=== PATIENT | male | born 1965 | race Two or more races ===

== ENCOUNTER 2025-03-11 14:44 | Inpatient (IN) | payer MEDICAID ==
[~2025-03-11] VITALS: Ht 157.5 cm; Wt 87.0 kg
--- NOTE | 2025-03-11 14:58 | ED.PDOC ---
HPI (NEURO) HPI Comments 60 year old male presents to the ED with a chief complaint of headache onset 3 days. PMHx Brain aneurysm, has ruptured 3 times. Patient began experiencing headache 3 days ago, for the past day noticed LT sided facial dropping with numbness, blurred vision, nausea. Denies fever, chills, vomiting, diarrhea, chest pain, shortness of breath. No other symptoms or modifying factors present at this time. Time Seen by MD: 14:48 Primary Care Provider: CRISTIANO Wilde Notes: Medications, Allergies Information Source: Patient Mode of Arrival: Ambulatory Severity: Moderate Headache Severity: Moderate Timing: Days Duration: Since onset Prehospital treatment: None Headache Quality: Sharp Headache Location: Generalized Numbness Location: (L) Sided, Facial Circumstances: Spontaneous Symptoms: Change of vision Associated Signs and Symptoms: Headache, Blurred Vision Past Medical History Past Medical History (Other): brain aneurysm Surgical History: Denies all surgeries Surgical History (Other): Brain aneurysm clipping x3 Family History Family History: Reviewed,noncontributory to illness, No family hx of Cancer, No family hx of DM, No family hx of Heart nat, No family hx of HTN, No family hx ofKidney nat, No family hx of Liver nat, No family hx of Lung nat, No family hx of Stroke Social History Smoker: Non-Smoker Alcohol: Denies ETOH Use Drugs: Denies Drug Use Lives In: Home Constitutional: denies: chills, diaphoresis, fatigue, fever, malaise, sweats, weakness, others EENTM: reports: blurred vision; denies: double vision, ear bleeding, ear discharge, ear drainage, ear pain, ear ringing, eye pain, eye redness, hearing loss, mouth pain, mouth swelling, nasal discharge, nose bleeding, nose congestion, nose pain, photophobia, tearing, throat pain, throat swelling, voice changes, others Respiratory: denies: cough, hemoptysis, orthopnea, SOB at rest, shortness of breath, SOB with excertion, stridor, wheezing, others Cardiovascular: denies: chest pain, dizzy spells, diaphoresis, Dyspnea on exertion, edema, irregular heart beat, left arm pain, lightheadedness, palpitat ions, PND, syncope, others Gastrointestinal: reports: nausea; denies: abdomen distended, abdominal pain, blood streaked bowels, constipated, diarrhea, dysphagia, difficulty swallowing, hematemesis, melena, poor appetite, poor fluid intake, rectal bleeding, rectal pain, vomiting, others Genitourinary: denies: burning, dysuria, flank pain, frequency, hematuria, incontinence, penile discharge, penile sore, pain, testicle pain, testicle swelling, urgency, others Neurological: reports: headache, numbness, others (LT sided facial drooping); denies: dizziness, fainting, left sided numbness, left sided weakness, parest hesia, pre-existing deficit, right sided numbness, right sided weakness, seizure, speech problems, tingling, tremors, weakness Musculoskeletal: denies: back pain, gout, joint pain, joint swelling, muscle pain, muscle stiffness, neck pain, others Integumetry: denies: bruises, change in color, change in hair/nails, dryness, laceration, lesions, lumps, rash, wounds, others Allergic/Immunocompromised: denies: Difficulty Healing, Frequent Infections, Hives, Itching, others Hematologic/Lymphatic: denies: anemia, blood clots, easy bleeding, easy bruisin g, swollen glands, others Endocrine: denies: excessive hunger, excessive sweating, excessive thirst, excessive urination, flushing, intolerance to cold, intolerance to heat, unexplained weight gain, unexplained weight loss, others Psychiatric: denies: anxiety, bipolar disorder, depression, hopeless, panic disorder, schizophrenia, sleepless, suicidal, others All Other Systems: Reviewed and Negative Physical Exam General Appearance: Normal HEENT: Normal ENT Inspection, Pharynx Normal, TMs Normal Neck: Full Range of Motion, Non-Tender, Normal, Normal Inspection Respiratory: Chest Non-Tender, Lungs Clear, No Accessory Muscle Use, No Respiratory Distress, Normal Breath Sounds Cardiovascular: No Edema, No JVD, No Murmur, No Gallop, Normal Peripheral Pulses, Regular Rate/Rhythm Breast Exam: Deferred Gastrointestinal: No Organomegaly, Non Tender, No Pulsatile Mass, Normal Bowel Sounds, Soft Genitalia: Deferred Pelvic: Deferred Rectal: Deferred Extremities: No calf tenderness, Normal capillary refill, Normal inspection, Normal range of motion, Non-tender, No pedal edema Musculoskeletal : Apperance: Normal Neurologic: Alert Cerebellar Function: Normal Reflexes: Normal Skin: Dry, Normal Color, Warm Lymphatic: No Adenopathy Was a procedure done? Was a procedure done?: No Differential Diagnosis (SZ) Seizure: Closed Head Injury, N/A CVA: CVA, TIA General Weakness: Dehydration Headache: Migraine X-Ray, Labs, Meds, VS Vital Signs Date Time Temp Pulse Resp B/P (MAP) Pulse Ox O2 Delivery O2 Flow Rate FiO2 03/11/25 14:57 68 03/11/25 14:46 98.0 71 14 140/93 (109) 98 98.0 Lab Test 03/11/25 16:31 03/11/25 15:14 Range/Units Troponin I High Sensitivity Pending 6 </=54 ng/L White Blood Count 6.6 4.4-10.8 10^3/uL Red Blood Count 5.51 4.5-5.90 10^6/uL Hemoglobin 16.9 13.5-17.5 g/dL Hematocrit 48.5 41.0-53.0 % Mean Corpuscular Volume 88.1 80.0-100.0 fL Mean Corpuscular Hemoglobin 30.7 28.0-32.0 pg Mean Corpuscular Hemoglobin Concent 34.9 32.0-36.0 g/dL Red Cell Distribution Width 13.6 11.8-14.3 % Platelet Count 202 140-450 10^3/uL Mean Platelet Volume 8.9 6.9-10.8 fL Neutrophils (%) (Auto) 46.2 37.0-80.0 % Lymphocytes (%) (Auto) 40.4 10.0-50.0 % Monocytes (%) (Auto) 10.4 0.0-12.0 % Eosinophils (%) (Auto) 1.9 0.0-7.0 % Basophils (%) (Auto) 1.1 0.0-2.0 % Neutrophils # (Auto) 3.1 1.6-8.6 10 ^3/uL Lymphocytes # (Auto) 2.7 0.4-5.4 10 ^3/uL Monocytes # (Auto) 0.7 0-1.3 10 ^3/uL Eosinophils # (Auto) 0.1 0-0.8 10 ^3/uL Basophils # (Auto) 0.1 0-0.2 10 ^3/uL Nucleated Red Blood Cells 0.1 % Prothrombin Time 11.0 9.3-11.8 sec Prothrombin Time INR 1.04 0.9-1.15 Activated Partial Thromboplast Time 28.3 24.5-34.5 SEC Sodium Level 142 136-145 mmol/L Potassium Level 3.8 3.5-5.1 mmol/L Chloride Level 107 98-107 mmol/L Carbon Dioxide Level 25 20-31 mmol/L Anion Gap 10 5-15 Blood Urea Nitrogen 13 9-23 mg/dL Creatinine 0.93 0.700-1.30 mg/dL Glomerular Filtration Rate Calc 93 >90 mL/min BUN/Creatinine Ratio 14.0 10.0-20.0 Serum Glucose 94 74-106 mg/dL Calcium Level 9.9 8.7-10.4 mg/dL Time of 1ST Reevaluation: 15:18 Reevaluation 1ST: Unchanged Patient Education/Counseling: Diagnosis, Treatment, Prognosis Family Education/Counseling: No Family Present Departure 1 Departure Time of Disposition: 17:06 (Patient with worsening left-sided facial droop concerning for TIA versus CVA versus recrudescence syndrome. We will admit patient for further workup and expert consultation) Impression: Primary Impression: Facial droop Disposition: ADMITTED INPATIENT Admit to: Med Surg Condition: Serious Critical Care Note Critical Care Time?: Yes Critical care comment: Concern for CVA Authorized and Performed by: Albert Carlos MD Total critical care time: Approximately 49 minutes Due to a high probability of clinically significant, life threatening deterioration, the patient required my highest level of preparedness to intervene emergently and I personally spent this critical care time directly and personally managing the patient. This critical care time included obtaining a history; examining the patient; pulse oximetry; ordering and review of studies; arranging urgent treatment with development of a management plan; evaluation of patient's response to treatment; frequent reassessment; and, discussions with other providers. This critical care time was performed to assess and manage the high probability of imminent, life-threatening deterioration that could result in multi-organ failure. It was exclusive of separately billable procedures and treating other patients and teaching time. Please see my other sections and the rest of the note for further information on patient assessment and treatment. Stability Stability form required: No I personally scribed for ALBERT CARLOS MD ([email or web address]) on 03/11/25 at 14:57. Electronically submitted by Elif Fried ([email or web address]). ALBERT CARLOS MD Mar 11, 2025 14:57
[2025-03-11 15:24] LABS: Basophils # (auto) 0.1 10 ^3/uL (0-0.2); Basophils % (auto) 1.1 % (0.0-2.0); Eosinophils # (auto) 0.1 10 ^3/uL (0-0.8); Eosinophils % (auto) 1.9 % (0.0-7.0); Hematocrit 48.5 % (41.0-53.0); Hemoglobin 16.9 g/dL (13.5-17.5); Lymphocytes # (auto) 2.7 10 ^3/uL (0.4-5.4); Lymphocytes % (auto) 40.4 % (10.0-50.0); Mean Corpuscular Hemoglobin 30.7 pg (28.0-32.0); Mean Corpuscular Hgb Conc. 34.9 g/dL (32.0-36.0); Mean Corpuscular Volume 88.1 fL (80.0-100.0); Monocytes # (auto) 0.7 10 ^3/uL (0-1.3); Monocytes % (auto) 10.4 % (0.0-12.0); Neutrophils # (auto) 3.1 10 ^3/uL (1.6-8.6); Neutrophils % (auto) 46.2 % (37.0-80.0); Nucleated Red Blood Cells % 0.1 %; Platelet Count (auto) 202 10^3/uL (140-450); Red Blood Cells 5.51 10^6/uL (4.5-5.90); Red Cell Distribution Width 13.6 % (11.8-14.3); White Blood Cell 6.6 10^3/uL (4.4-10.8)
--- NOTE | 2025-03-11 15:30 | DVH ---
CHEST RADIOGRAPH Indication: facial droop Technique: Single frontal view of the chest was obtained COMPARISON: None FINDINGS: Lines and Tubes: None Lungs: Clear Pleura: No effusion. No pneumothorax. Cardiomediastinal contours: Unremarkable Bones: Unremarkable IMPRESSION: No acute disease.
[2025-03-11 15:31] LABS: Potassium 3.8 mmol/L (3.5-5.1); Sodium 142 mmol/L (136-145)
[2025-03-11 15:32] LABS: Anion Gap 10 (5-15); Carbon Dioxide 25 mmol/L (20-31)
[2025-03-11 15:33] LABS: Calcium 9.9 mg/dL (8.7-10.4)
[2025-03-11 15:37] LABS: Blood Urea Nitrogen 13 mg/dL (9-23); Glucose 94 mg/dL (74-106)
[2025-03-11 15:40] LABS: Chloride 107 mmol/L (98-107)
[2025-03-11 15:45] LABS: INR 1.04 (0.9-1.15); Partial Thromboplastin Time 28.3 SEC (24.5-34.5)
--- NOTE | 2025-03-11 15:51 | DVH ---
EXAM: CT HEAD WITHOUT CONTRAST INDICATION: facial droop TECHNIQUE: CT of the head without intravenous contrast. Radiation Dose Information: CT Dose: CTDI volume is 56.01 mGy. Dose-length product is 991.72 mGy*cm The dose indicators for CT are the volume Computed Tomography (CT) Dose Index (CTDIvol) and the Dose Length Product (DLP), and are measured in units of mGy and mGy-cm, respectively. These indicators are not patient dose, but values generated from the CT scanner acquisition factors. The report includes radiation exposure data for exposures received during this examination. COMPARISON: CT HEAD WITHOUT CONTRAST on DOS: 12/15/23 FINDINGS: There is no evidence of acute intracranial hemorrhage, extra-axial collection, mass effect, midline s hift, herniation or hydrocephalus. Area of encephalomalacia right frontal lobe. Craniotomy defect right temporal skull. Aneurysm clips i n place on the right. No acute intracranial hemorrhage The ventricles, sulci and cisterns are age appropriate. The rouse-white differentiation is intact. Patchy periventricular and subcortical white matter hypoattenuation is nonspecific but may be related to small vessel ischemic disease. The visualized paranasal sinuses and mastoid air cells are clear. The surrounding soft tissues and osseous structures are unremarkable. IMPRESSION: 1. No acute intracranial hemorrhage 2. Postop changes of the right craniotomy with subluxed encephalomalacia. HS:Y
[2025-03-11 20:55] LABS: Urine Bacteria None Seen /hpf (None Seen)
[2025-03-11 21:02] LABS: Urine Blood Negative /uL (Negative); Urine Clarity Clear (Clear); Urine Color Yellow (Yellow); Urine Mucus FEW (None Seen); Urine Protein, UAD Negative (Negative); Urine Specific Gravity 1.024 (1.001-1.035); Urine Squamous Epithelial Cell FEW /hpf (<5); Urine Urobilinogen Normal (Negative); Urine WBC 1 /HPF (0-3); Urine pH 5.5 (5.0-9.0)
--- NOTE | 2025-03-11 21:49 | DVHHPRES ---
History of Present Illness Resident Creating Document: NICHELLE GASTELUM RESIDENT History of Present Illness 60 year old male with PMH of Brain Aneurysm s/p clipping, and SAH s/p Craniotomy, presented with complaints of Left sided Facial droop that started today in the morning associated with headache and ear pain. Pt mentioned mild headache on the left side associated with ear pain radiating to to the lower neck on the neck. He also mentioned difficulty hearing on the left side. Patient is refusing any chest pain, SOB, n/v/abd pain, seizures. PMH HLD Hyperlipidemia Brain Aneurysm s/p clipping, and SAH s/p Craniotomy PSH s/p clipping, and s/p Craniotomy Social history Denied smoking, alcohol, marijuana or any other drug intake Medication History benazepril Hydrochlorothiazide Atorvastatin Trazodone Allergic history NO known allergies Review of Systems Review of Systems as described it the [facility] Allergies: Coded Allergies: NO KNOWN ALLERGIES (Unverified , 12/15/23) Exam Vital Signs Vital Signs Date Time Temp Pulse Resp B/P (MAP) Pulse Ox O2 Delivery O2 Flow Rate FiO2 03/11/25 14:57 68 03/11/25 14:46 98.0 14 140/93 (109) 98 98.0 Exam Neurological Examination No motor or sensory limb deficit No gait abnormalities Normal speech and tone No cerebellar abnormalities , normal finger nose test , no dysdiadochokinesia Cranial nerve examination II Grossly intact III, IV, Grossly intact V Grossly intact Cranial Nerve 7 Facial nerve palsy on left side, lower motor neuron type, complete facial involvement Cranial Nerve 8 reduced hearing sensation on left side IX, X, XI, XII : Grossly intact Left ear canal shows erythema with single raised lesion General Appearance: Alert, Oriented X3 Respiratory: Clear to auscultation Cardiovascular: Regular rate Abdominal: Normal bowel sounds Extremities: No clubbing Skin: No rashes Neuro: Normal gait, Normal speech Psych/Mental Status: Mental status NL Labs/Xrays Labs Test 03/11/25 20:40 03/11/25 18:21 03/11/25 15:14 Range/Units Urine Color Yellow Yellow Urine Clarity Clear Clear Urine pH 5.5 5.0-9.0 Urine Specific Aldrich 1.024 1.001-1.035 Urine Protein Negative Negative Urine Ketones Negative Negative Urine Blood Negative Negative /uL Urine Nitrite Negative Negative Urine Bilirubin Negative Negative Urine Urobilinogen Normal Negative mg/dL Urine Leukocyte Esterase Negative Negative /uL Urine RBC <1 0 - 3 /hpf Urine Microscopic WBC 1 0-3 /HPF Urine Squamous Epithelial Cells Few <5 /hpf Urine Bacteria None seen None Seen /hpf Urine Mucus Few None Seen Urine Glucose Normal Normal mg/dL Troponin I High Sensitivity 5 </=54 ng/L White Blood Count 6.6 4.4-10.8 10^3/uL Red Blood Count 5.51 4.5-5.90 10^6/uL Hemoglobin 16.9 13.5-17.5 g/dL Hematocrit 48.5 41.0-53.0 % Mean Corpuscular Volume 88.1 80.0-100.0 fL Mean Corpuscular Hemoglobin 30.7 28.0-32.0 pg Mean Corpuscular Hemoglobin Concent 34.9 32.0-36.0 g/dL Red Cell Distribution Width 13.6 11.8-14.3 % Platelet Count 202 140-450 10^3/uL Mean Platelet Volume 8.9 6.9-10.8 fL Neutrophils (%) (Auto) 46.2 37.0-80.0 % Lymphocytes (%) (Auto) 40.4 10.0-50.0 % Monocytes (%) (Auto) 10.4 0.0-12.0 % Eosinophils (%) (Auto) 1.9 0.0-7.0 % Basophils (%) (Auto) 1.1 0.0-2.0 % Neutrophils # (Auto) 3.1 1.6-8.6 10 ^3/uL Lymphocytes # (Auto) 2.7 0.4-5.4 10 ^3/uL Monocytes # (Auto) 0.7 0-1.3 10 ^3/uL Eosinophils # (Auto) 0.1 0-0.8 10 ^3/uL Basophils # (Auto) 0.1 0-0.2 10 ^3/uL Nucleated Red Blood Cells 0.1 % Prothrombin Time 11.0 9.3-11.8 sec Prothrombin Time INR 1.04 0.9-1.15 Activated Partial Thromboplast Time 28.3 24.5-34.5 SEC Sodium Level 142 136-145 mmol/L Potassium Level 3.8 3.5-5.1 mmol/L Chloride Level 107 98-107 mmol/L Carbon Dioxide Level 25 20-31 mmol/L Anion Gap 10 5-15 Blood Urea Nitrogen 13 9-23 mg/dL Creatinine 0.93 0.700-1.30 mg/dL Glomerular Filtration Rate Calc 93 >90 mL/min BUN/Creatinine Ratio 14.0 10.0-20.0 Serum Glucose 94 74-106 mg/dL Calcium Level 9.9 8.7-10.4 mg/dL Assessment/Plan Assessment/Plan Assessment and Plan # 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 -CT head -Prednisone 60mg daily Neurology consult Acyclovir CTA head and neck # History of SAH s/p craniotomy on the right side # History of Brain aneurysm s/p clipping # Hypertension resume home Meds # hyperlipidemia resume home Meds Case discussion with Dr Edwards Plan discussed with: Patient, Other My Orders Orders - NICHELLE GASTELUM Procedure Category Date Status Time Admit ADMIT 03/11/25 Verified 21:14 Oxygen By Nasal RT 03/11/25 Verified Cannula 21:14 Date of Service: Mar 11, 2025 Billing Provider: RERE EDWARDS MD Common Visit Codes: [id number] INP/OBS CARE (HIGH) Secondary Visit Codes: 70741-[id number] CARE PLAN 30 MINUTES NICHELLE GASTELUM RESIDENT Mar 11, 2025 21:49 RERE EDWARDS MD Mar 12, 2025 19:13
[2025-03-11] MEDS ORDERED: ARTIFICIAL TEARS 15ml EACHEYE PRN (22:15)
[2025-03-11] MEDS: IOHEXOL 300 MG/ML 100ML BOTTLE IJ ONE (23:06)
[2025-03-11] MEDS ORDERED: BENA-36 PO (23:26)
[2025-03-11] MEDS ORDERED: SERT25TA28 PO (23:27)
[2025-03-11] MEDS ORDERED: HYDR12.59 PO (23:27)
[2025-03-11] MEDS ORDERED: ATOR20TA50 PO (23:29)
[2025-03-11] MEDS ORDERED: TRAZ-227 PO (23:29)
[2025-03-11] MEDS ORDERED: CYA100I PO (23:31)
[2025-03-11] MEDS ORDERED: CYAN-17 PO (23:31)
[2025-03-11] MEDS ORDERED: CHOL20004 PO (23:32)
[2025-03-12] VITALS (7 sets, daily range): BP systolic 122–139; BP diastolic 79–89; PULSE 61–99; RESP 17–19; TEMP 97.8–98.1; O2SAT 95–97
[2025-03-12] MEDS: predniSONE 20 MG TAB PO ONE (01:16)
[2025-03-12] MEDS: ACETAMINOPHEN 325 MG TAB PO ONE (01:23)
--- NOTE | 2025-03-12 04:38 | DVH ---
INDICATION: facial droop EXAM DATE: 03/11/2025 11:02 PM COMPARISON: None TECHNIQUE: CTA head without and with intravenous contrast. CTA neck with intravenous contrast. 3D image postprocessing was performed on a dedicated workstation and images were used for interpretation and reporting. RADIATION DOSE: Brain: CTDIvol: 46.58 mGy, DLP: 767.18 mGy*cm Tracker: CTDIvol: 46.58 mGy, DLP: 767.18 mGy*cm Angio: CTDIvol: 46.58 mGy, DLP: 767.18 mGy*cm FINDINGS: CTA head: There is normal enhancement of the visualized distal internal carotid, anterior and middle cerebral a rteries. There is a normal anterior communicating artery complex. There are bilateral posterior com municating arteries. The vertebral, basilar, cerebellar and posterior cerebral arteries are within n ormal limits. The early parenchymal enhancement is grossly unremarkable. The visualized intracrania l venous structures are grossly unremarkable. neurysm clips in place on the right [place] CTA neck: The visualized thoracic aortic arch and proximal great vessels are unremarkable. The left common, in ternal and external carotid arteries are within normal limits. The right common, internal and cinema operator al carotid arteries are within normal limits. The cervical segments of the right and left vertebral arteries are within normal limits. The limited visualized lung apices are clear. The surrounding so ft tissues and osseous structures are otherwise unremarkable. IMPRESSION: No evidence of hemodynamically significant intracranial stenosis, proximal occlusion or aneurysm. No evidence of hemodynamically significant cervical stenosis or dissection. CAROTID STENOSIS REFERENCE Distal internal carotid artery diameter as the denominator for stenosis measurement: MILD = <50% stenosis. MODERATE = 50-69% stenosis. SEVERE = 70-89% stenosis. CRITICAL = 90-99% stenosis. OCCLUDED = 100% stenosis.
[2025-03-12] MEDS: ACYCLOVIR 400 MG TAB PO SCH (08:42)
[2025-03-12 09:18] LABS: Benzodiazephine Screen, Urine Neg (NEGATIVE)
[2025-03-12 09:19] LABS: Amphetamine Screen, Urine Neg (NEGATIVE); Barbiturate Scree,Urine Neg (NEGATIVE); Cannabinoid Screen, Urine Neg (NEGATIVE); Cocaine Screen, Urine Neg (NEGATIVE); Opiate Scree,Urine Neg (NEGATIVE); Phencyclidine Screen, Urine Neg (NEGATIVE)
[2025-03-12] MEDS: predniSONE 20 MG TAB PO SCH (10:04)
[2025-03-12 11:10] LABS: Albumin 4.7 g/dL (3.2-4.8); Bilirubin, Direct 0.6 mg/dL (<0.3); Bilirubin, Total 1.8 mg/dL (0.2-1.0); Total Protein 7.8 g/dL (5.7-8.2)
[2025-03-12 11:21] LABS: Magnesium 2.1 mg/dL (1.6-2.6)
--- NOTE | 2025-03-12 14:36 | DVHPNRES ---
Progress Note Date Seen: Mar 12, 2025 Resident Creating Document: FRANKIE GUEVARA RESIDENT Medical Necessity Reason Pt with a Central, PICC or Fol: No Subjective Review of Systems Mr. Sandoval is a 60 year old male with history of brain aneurysm status post clipping, subarachnoid hemorrhage status post craniotomy who presented to the ER with a chief complaint of left-sided facial weakness and drooping for a day associated with left-sided headache and ear pain. t mentioned mild headache on the left side associated with ear pain radiating to to the lower neck on the neck. He also mentioned difficulty hearing on the left side. He denies chest pain, shortness of breath, nausea/vomiting/diarrhea/abdominal pain/seizure at this time. Past medical /surgical history:brain aneurysm status post clipping, subarachnoid hemorrhage status post craniotomy, hyperlipidemia, hypertension Social history: Denies smoking, drinking, marijuana use Home medication: Benazepril, hydrochlorothiazide, atorvastatin, trazodone Patient seen and examined in ER holding area. Has complete left-sided facial paralysis, lower motor neuron lesion. Objective vital signs Vital Sign Date Time Temp Pulse Resp B/P (MAP) Pulse Ox O2 Delivery O2 Flow Rate FiO2 03/12/25 09:00 97.8 65 18 139/89 (106) 96 97.8 03/12/25 04:50 Room Air* 0 21 medications Current Medications Medications Dose Ordered Sig/Vikki Route Start Time Stop Time Status Last Admin Dose Admin Prednisone 60 mg DAILY PO 03/12/25 10:00 03/12/25 10:04 60 MG Artificial Tears 1 drop Q2HP PRN EACHEYE 03/11/25 22:15 Acetaminophen 650 mg Q4HP PRN PO 03/12/25 01:30 Acyclovir 400 mg 5XD PO 03/12/25 06:00 03/12/25 14:20 400 MG Examination Patient comfortably sitting in a chair, no acute distress. Visible facial asymmetry. General: Well-built, no pallor, mucosae are moist Cardiovascular: Regular S1 and S2. No murmurs, gallops or rubs. No JVD elevation. No pedal edema Respiratory: Normal B/L air entry on room air. Clear lung sounds on auscultation Abdomen: Soft, nontender, nondistended, normoactive bowel sounds, no rebound tenderness, no organomegaly, no masses Genitourinary: Deferred MSK/skin: Mobilizes 4 limbs. Skin is dry and warm Neurological: No motor, no sensitive deficits, speech is normal. Pupils are isocoric and reactive. Facial muscles asymmetrical, unable to make eyebrows/wrinkles, unable to smile, left eye not closing Fully . Angle of mouth drooping on right side. Facial sensation intact in V1/V2/V3 Patient can write her name, can draw clock. 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 Postop changes of the right craniotomy with subluxed encephalomalacia. CTA head and neck completed given history of subarachnoid hemorrhage and aneurysms, showed No evidence of hemodynamically significant intracranial stenosis, proximal occlusion or aneurysm. No evidence of hemodynamically significant cervical stenosis or dissection. Prednisone 60mg daily Neurology consult Acyclovir 400 mg 5 times daily Artificial tears # History of SAH s/p craniotomy on the right side Monitor # History of Brain aneurysm s/p clipping Monitor # Hypertension Continue hydrochlorothiazide 12.5 mg daily # hyperlipidemia resume home Meds Vitamin-D deficiency Supplemented DVT prophylaxis: SCDs given history of SAH Soft mechanical diet, passed bedside swallow eval Plan discussed with patient in which all questions have been answered Goals of care discussed with the patient for more than 20 minutes, full code status Case discussed with Dr. Gaspar Plan discussed with: Patient My Orders My Orders Orders - FRANKIE GUEVARA Procedure Category Date Status Time Covid19 Antigen Cecy LAB 03/12/25 Logged Rapid Influenza A&B LAB 03/12/25 Logged 08:36 Communication Order ORDERS 03/12/25 Transmitted 10:43 Neuro Checks Q2hrs MILI 03/12/25 In Process 10:43 Neuro Checks Q2hrs MILI 03/12/25 In Process 10:45 Date of Service: Mar 12, 2025 Billing Provider: ALVINA STAPLES MD Common Visit Codes: [id number] INP/OBS CARE(HIGH) FRANKIE GUEVARA Mar 12, 2025 14:36 ALVINA STAPLES MD Mar 15, 2025 10:07
[2025-03-12] MEDS: ERGOCALCIFEROL 50,000 UNIT(1.25MG) CAP PO SCH (14:45)
[2025-03-12] MEDS: hydroCHLOROthiazide 25 MG TAB PO ONE (14:45)
[2025-03-12] MEDS: ATORVASTATIN 20 MG TAB PO SCH (21:10)
--- NOTE | 2025-03-12 22:36 | DVHINCON2 ---
Date of service: Mar 12, [address] Mckeon Reason for Consultation Facial droop History of Present Illness Mr. Hill is a 60 years old right-handed gentleman with a history of brain aneurysm, subarachnoid hemorrhage status post craniotomy, obesity, he came to the [facility] on 03/11/2025 with a chief company of headache, left facial drooping. At this time, he is alert, fully oriented, he provided the following history with our bilingual staff's help On 03/08/2025, he developed constant headache, 04/01, which did not improve until he came to the hospital. Since 03/09/2025, he has noticed nonprogressive left facial weakness, in that he was not able to close the left eye completely, he also noticed diminished hearing capability in the left ear. He denies weakness numbness in the extremities He denies recent chills, fever, coughing, runny nose, nausea, vomiting, diarrhea, trauma, or vaccination He snores since 2022, he does not know how loud snores, but he sometimes waking up coughing, he reports good sleep, and sleep is refreshing, he does not have fatigue or hypersomnia during the daytime Urinalysis, 03/11/2025: Unremarkable UDS, 03/11/2025: Negative CBC, 03/11/2025: Unremarkable BNP, 03/11/2025: Unremarkable TBI/AST/ALT/AP, 03/12/2025: 1.8/18/30/53 Vitamin B12, 03/12/2025: 429 TSH, 03/12/2025: 1.41 CT head, 12/15/2023: Subarachnoid hemorrhage in the bilateral temporal, frontal, parietal lobes and possibly the basal cistern. Cerebral artery aneurysm rupture is a consideration CT head, 03/11/2025: 1. No acute intracranial hemorrhage 2. Postop changes of the right craniotomy with subluxed encephalomalacia CT head, neck, 03/11/2025: No evidence of hemodynamically significant intracranial stenosis, proximal occlusion or aneurysm. No evidence of hemodynamically significant cervical stenosis or dissection. Past Medical History Brain aneurysm, subarachnoid hemorrhage Past Surgical History Brain aneurysm clipping, craniotomy (11/2023) Family History: Patient reports no known family medical history. Family History Cancer Social History He denies a history of smoking, alcohol or drug abuse Allergies: Coded Allergies: NO KNOWN ALLERGIES (Unverified , 12/15/23) Home Meds Reported Medications Cholecalciferol (D3) 50 Mcg Cap, 50 MCG PO DAILY, CAP 03/11/25 Cyanocobalamin (B12) 1,000 Mcg Cap, 1000 MCG PO DAILY, CAP 03/11/25 Atorvastatin Calcium (ATORVASTATIN CALCIUM) 20 Mg Tab, 1 TAB PO DAILY, #30 TAB 5 Refills 03/11/25 Trazodone Hcl (Trazodone Hcl) 50 Mg Tab, 50 MG PO DAILY, TAB 03/11/25 Sertraline Hcl (Sertraline Hcl) 25 Mg Tab, 25 MG PO DAILY, TAB 03/11/25 Hydrochlorothiazide (Hydrochlorothiazide) 12.5 Mg Cap, 12.5 MG PO DAILY, CAP 03/11/25 Benazepril Hcl (Benazepril Hcl) 20 Mg Tab, 1 TAB PO BID, #30 TAB 5 Refills 03/11/25 Current Medications Current Medications Medications (Trade) Dose Ordered Sig/Vikki Route PRN Reason Start Time Stop Time Status Last Admin Prednisone 60 mg DAILY PO 03/12/25 10:00 03/12/25 10:04 Acetaminophen (Tylenol Tablet) 650 mg Q4HP PRN PO MILD PAIN (1-3 PAIN SCALE) 03/12/25 01:30 Acyclovir (Zovirax Tablet) 400 mg 5XD PO 03/12/25 06:00 03/12/25 21:10 Atorvastatin Calcium (Lipitor) 20 mg DAILY PO 03/13/25 10:00 03/12/25 15:35 DC Trazodone HCl (Desyrel) 50 mg DAILY PO 03/13/25 10:00 Hydrochlorothiazide (hydroCHLOROthiazide TABLET) 12.5 mg DAILY PO 03/13/25 10:00 Ergocalciferol (Vitamin D 50,000 Unit) 50,000 unit Q7D PO 03/12/25 14:45 Atorvastatin Calcium (Lipitor) 20 mg HS PO 03/12/25 22:00 03/12/25 21:10 Review of Systems As above, the other systems are negative Vital Signs Vital Signs Date Time Temp Pulse Resp B/P (MAP) Pulse Ox O2 Delivery O2 Flow Rate FiO2 03/12/25 21:00 97.9 92 18 134/82 (99) 96 97.9 6/20/25 04:50 Room Air* 0 21 Physical Exam GENERAL EXAM: General: the patient is well developed and nourished. No acute distress. HEENT: Status post right craniotomy, neck is supple, no carotid bruits. No mass. RESPIRATORY: Normal respiratory effort with symmetrical lung expansion. Lungs clear to auscultation. CARDIOVASCULAR: Regular rate and rhythm with no murmurs. S1, S2. ABDOMEN: Soft, nontender, normal bowel sound NEUROLOGICAL: MENTAL STATUS: Awake and alert. Oriented to person, place, time and general circumstances. Able to give personal history. SPEECH, LANGUAGE, HIGHER CORTICAL FUNCTION: no aphasia or dysathria. CRANIAL NERVES: #2: Intact visual rodriguez to confrontation. The optic discs were sharp. #3,4,6: Pupils are equal, round and reactive. EOMs full and conjugate. No nystagmus. #5: Facial sensation intact in all three divisions bilaterally. Mandibular strength intact. #7: Mild left facial weakness of lower motor neuron pattern, he was able to close the eye by 85% , diminished taste in the left tongue #8: Hearing is diminished to finger rubbing on the left side #9,10: Uvula and soft palate rise in the midline. Swallow and voice are normal. #11: Trapezius and sternomastoid strength intact bilaterally. #12: The left tongue is questionable deviated to the left side SENSATION: Sensation to touch and pinprick is normal. MOTOR: Normal tone in the upper and lower extremity. Normal muscle bulk. No fasciculations. No abnormal movements or posturing. Muscle strength of the major groups in the upper extremities is 5/5. Muscle strength of the major groups in the lower extremities is 5/5. REFLEXES: Deep tendon reflexes normal and symmetrical. No pathological reflexes. CEREBELLAR/COORDINATION: Finger to nose and heel to sanchez are normal bilat erally. GAIT/STATION: deferred. Labs/Diagnostic Data Labs Test 03/12/25 21:42 03/12/25 09:10 03/11/25 20:40 03/11/25 18:21 Range/Units Magnesium Level 2.1 1.6-2.6 mg/dL Total Bilirubin 1.8 H 0.2-1.0 mg/dL Direct Bilirubin 0.6 H <0.3 mg/dL Aspartate Amino Transferase (AST) 18 <34 U/L Alanine Aminotransferase (ALT) 30 7-40 U/L Alkaline Phosphatase 53 46-116 U/L Total Protein 7.8 5.7-8.2 g/dL Albumin 4.7 3.2-4.8 g/dL Vitamin B12 Level 429 211-911 pg/mL Vitamin D 25-Hydroxy 25.6 L 30.0-100 ng/mL Thyroid Stimulating Hormone (TSH) 1.41 0.55-4.78 uIU/mL Urine Color Yellow Yellow Urine Clarity Clear Clear Urine pH 5.5 5.0-9.0 Urine Specific Maple 1.024 1.001-1.035 Urine Protein Negative Negative Urine Ketones Negative Negative Urine Blood Negative Negative /uL Urine Nitrite Negative Negative Urine Bilirubin Negative Negative Urine Urobilinogen Normal Negative mg/dL Urine Leukocyte Esterase Negative Negative /uL Urine RBC <1 0 - 3 /hpf Urine Microscopic WBC 1 0-3 /HPF Urine Squamous Epithelial Cells Few <5 /hpf Urine Bacteria None seen None Seen /hpf Urine Mucus Few None Seen Urine Glucose Normal Normal mg/dL Urine Opiates Screen Neg NEGATIVE Urine Fentanyl Screen Neg NEGATIVE Urine Barbiturates Screen Neg NEGATIVE Urine Phencyclidine Screen Neg NEGATIVE Urine Amphetamines Screen Neg NEGATIVE Urine Benzodiazepines Screen Neg NEGATIVE Urine Cocaine Screen Neg NEGATIVE Urine Cannabinoids Screen Neg NEGATIVE Troponin I High Sensitivity 5 </=54 ng/L Test 03/11/25 15:14 Range/Units White Blood Count 6.6 4.4-10.8 10^3/uL Red Blood Count 5.51 4.5-5.90 10^6/uL Hemoglobin 16.9 13.5-17.5 g/dL Hematocrit 48.5 41.0-53.0 % Mean Corpuscular Volume 88.1 80.0-100.0 fL Mean Corpuscular Hemoglobin 30.7 28.0-32.0 pg Mean Corpuscular Hemoglobin Concent 34.9 32.0-36.0 g/dL Red Cell Distribution Width 13.6 11.8-14.3 % Platelet Count 202 140-450 10^3/uL Mean Platelet Volume 8.9 6.9-10.8 fL Neutrophils (%) (Auto) 46.2 37.0-80.0 % Lymphocytes (%) (Auto) 40.4 10.0-50.0 % Monocytes (%) (Auto) 10.4 0.0-12.0 % Eosinophils (%) (Auto) 1.9 0.0-7.0 % Basophils (%) (Auto) 1.1 0.0-2.0 % Neutrophils # (Auto) 3.1 1.6-8.6 10 ^3/uL Lymphocytes # (Auto) 2.7 0.4-5.4 10 ^3/uL Monocytes # (Auto) 0.7 0-1.3 10 ^3/uL Eosinophils # (Auto) 0.1 0-0.8 10 ^3/uL Basophils # (Auto) 0.1 0-0.2 10 ^3/uL Nucleated Red Blood Cells 0.1 % Prothrombin Time 11.0 9.3-11.8 sec Prothrombin Time INR 1.04 0.9-1.15 Activated Partial Thromboplast Time 28.3 24.5-34.5 SEC Sodium Level 142 136-145 mmol/L Potassium Level 3.8 3.5-5.1 mmol/L Chloride Level 107 98-107 mmol/L Carbon Dioxide Level 25 20-31 mmol/L Anion Gap 10 5-15 Blood Urea Nitrogen 13 9-23 mg/dL Creatinine 0.93 0.700-1.30 mg/dL Glomerular Filtration Rate Calc 93 >90 mL/min BUN/Creatinine Ratio 14.0 10.0-20.0 Serum Glucose 94 74-106 mg/dL Calcium Level 9.9 8.7-10.4 mg/dL Assessment Left facial weakness, 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 Secondary to brain aneurysm/right encephalomalacia Sleep-related breathing disorder Obesity Plan/Recommendation Monitoring Supportive treatment Telemetry MRI brain scan Discontinue acyclovir Prednisone 60 mg p.o. acute a.m. or 10 days followed by Medrol-Dosepak Artificial tear Wide leg sunglasses or eye pad GI prophylax A trial of APAP in the hospital With the control Sleep hygiene tips Daytime hypersomnia precautions discussed Further address his sleep-related breathing disorder as outpatient Progress: Poor This medical document was created using an electronic medical record system with [employer] system. Although this document has been carefully reviewed, there may still be some phonetic and typographical errors. These areas are purely typographical due to imperfections of the software programs, and do not reflect any compromise in the patient's medical care. Plan discussed with: Patient, Other MONICA OROZCO MD Mar 12, 2025 22:36
[2025-03-12 22:38] LABS: COVID19 ANTIGEN SOFIA FIA NEGATIVE (NEGATIVE); Rapid Influenza A Negative (Negative); Rapid Influenza B Negative (Negative)
[2025-03-12] MEDS ORDERED: LORazepam 2MG/ML-1ML VIAL IV PRN (23:15)
[2025-03-13] VITALS (8 sets, daily range): BP systolic 111–145; BP diastolic 61–87; PULSE 55–74; RESP 16–20; TEMP 97.3–98.1; O2SAT 97–99
--- NOTE | 2025-03-13 06:33 | ECG ---
[facility] Test Date: 2025-03-11 Test Time: 14:57:46 Pat Name: VIBHA DOHERTY Department: ER Room: 0250 Gender: M Educational Specialist: JANELLE : 1965 Requested By: ALBERT CARLOS Order Number: [id number] Reading MD: Raimundo Alston Measurements Intervals [place] Rate: 68 P: 38 MI: 159 QRS: -30 QRSD: 96 T: -15 QT: 423 QTc: 450 Interpretive Statements Sinus rhythm Left axis deviation Abnormal R-wave progression, late transition Borderline T abnormalities, diffuse leads Electronically Signed On 03-16-2025 22:30:31 PDT by Raimundo Alston Please click the below link to view image of tracing.
[2025-03-13 07:43] LABS: Basophils # (auto) 0 10 ^3/uL (0-0.2); Basophils % (auto) 0.2 % (0.0-2.0); Eosinophils # (auto) 0 10 ^3/uL (0-0.8); Hematocrit 46.2 % (41.0-53.0); Hemoglobin 15.8 g/dL (13.5-17.5); Lymphocytes % (auto) 17.6 % (10.0-50.0); Mean Corpuscular Hemoglobin 30.1 pg (28.0-32.0); Mean Corpuscular Hgb Conc. 34.3 g/dL (32.0-36.0); Mean Corpuscular Volume 87.8 fL (80.0-100.0); Monocytes # (auto) 1.7 10 ^3/uL (0-1.3); Monocytes % (auto) 9.7 % (0.0-12.0); Neutrophils # (auto) 12.4 10 ^3/uL (1.6-8.6); Neutrophils % (auto) 72.5 % (37.0-80.0); Platelet Count (auto) 212 10^3/uL (140-450); Red Blood Cells 5.26 10^6/uL (4.5-5.90); Red Cell Distribution Width 13.5 % (11.8-14.3)
[2025-03-13 08:01] LABS: Anion Gap 12 (5-15); Carbon Dioxide 23 mmol/L (20-31); Chloride 105 mmol/L (98-107); Potassium 3.6 mmol/L (3.5-5.1); Sodium 140 mmol/L (136-145)
[2025-03-13 08:07] LABS: BUN/Creatinine Ratio 24.7 (10.0-20.0); Blood Urea Nitrogen 22 mg/dL (9-23)
[2025-03-13 08:09] LABS: Glucose 121 mg/dL (74-106)
[2025-03-13] MEDS: ACETAMINOPHEN 325 MG TAB PO PRN (08:33)
[2025-03-13] MEDS ORDERED: ATORVASTATIN 20 MG TAB PO SCH (10:00)
[2025-03-13] MEDS: FAMOTIDINE 20 MG TAB PO SCH (10:20)
[2025-03-13] MEDS: traZODone HCL 50 MG TAB PO SCH (10:20)
[2025-03-13] MEDS: hydroCHLOROthiazide 25 MG TAB PO SCH (10:23)
[2025-03-13] MEDS: predniSONE 20 MG TAB PO SCH (11:31)
--- NOTE | 2025-03-13 13:48 | DVHPNRES ---
Progress Note Date Seen: Mar 13, 2025 Resident Creating Document: MANNY GARCIA RESIDENT Medical Necessity Reason Pt with a Central, PICC or Fol: No Subjective Review of Systems Patient seen and examined at bedside. Has complete left-sided facial paralysis, lower motor neuron lesion Objective vital signs Vital Sign Date Time Temp Pulse Resp B/P (MAP) Pulse Ox O2 Delivery O2 Flow Rate FiO2 03/13/25 13:17 98.1 60 20 145/83 (103) 99 98.1 03/13/25 10:00 Room Air* 0 21 Total Intake and Output 03/12/25 03/12/25 03/13/25 15:00 23:00 07:00 Intake Total 250 ml 250 ml 300 ml Balance 250 ml 250 ml 300 ml medications Current Medications Medications Dose Ordered Sig/Vikki Route Start Time Stop Time Status Last Admin Dose Admin Artificial Tears 1 drop Q2HP PRN EACHEYE 03/11/25 22:15 Acetaminophen 650 mg Q4HP PRN PO 03/12/25 01:30 03/13/25 08:33 650 MG Trazodone HCl 50 mg DAILY PO 03/13/25 10:00 03/13/25 10:20 50 MG Hydrochlorothiazide 12.5 mg DAILY PO 03/13/25 10:00 03/13/25 10:23 12.5 MG Ergocalciferol 50,000 unit Q7D PO 03/12/25 14:45 Atorvastatin Calcium 20 mg HS PO 03/12/25 22:00 03/12/25 21:10 20 MG Prednisone 60 mg DAILY PO 03/13/25 10:00 03/22/25 09:59 03/13/25 11:31 60 MG Lorazepam 1 mg ONCE PRN IV 03/12/25 23:15 Famotidine 40 mg DAILY PO 03/13/25 10:00 03/13/25 10:20 40 MG Examination Patient comfortably sitting in a chair, no acute distress. Visible facial asymmetry. General: Well-built, no pallor, mucosae are moist Cardiovascular: Regular S1 and S2. No murmurs, gallops or rubs. No JVD elevation. No pedal edema Respiratory: Normal B/L air entry on room air. Clear lung sounds on auscultation Abdomen: Soft, nontender, nondistended, normoactive bowel sounds, no rebound tenderness, no organomegaly, no masses Genitourinary: Deferred MSK/skin: Mobilizes 4 limbs. Skin is dry and warm Neurological: No motor, no sensitive deficits, speech is normal. Pupils are isocoric and reactive. Facial muscles asymmetrical, unable to make eyebrows/wrinkles, unable to smile, left eye not closing Fully . Angle of mouth drooping on right side. Facial sensation intact in V1/V2/V3 Patient can write her name, can draw clock. 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 [place] lin syndrome Rule out acute stroke CT head shows No acute intracranial hemorrhage. Postop changes of the right craniotomy with subluxed encephalomalacia. CTA head and neck completed given history of subarachnoid hemorrhage and aneurysms, showed No evidence of hemodynamically significant intracranial stenosis, proximal occlusion or aneurysm. No evidence of hemodynamically significant cervical stenosis or dissection. Prednisone 60mg daily Neurology appreciated: Discontinue acyclovir Artificial tears # History of SAH s/p craniotomy on the right side Monitor # History of Brain aneurysm s/p clipping Monitor # Hypertension Continue hydrochlorothiazide 12.5 mg daily # hyperlipidemia resume home Meds Vitamin-D deficiency Supplemented DVT prophylaxis: SCDs given history of SAH Soft mechanical diet, passed bedside swallow eval Goals of care discussed with the patient for 16 minutes, full code status Case discussed with Dr. Torres Plan discussed with: Patient Date of Service: Mar 13, 2025 Billing Provider: HELEN TORRES MD Common Visit Codes: [id number] INP/OBS CARE(HIGH) MANNY GARCIA RESIDENT Mar 13, 2025 13:48 HELEN TORRES MD Mar 15, 2025 08:18
[2025-03-14 06:44] LABS: Basophils # (auto) 0 10 ^3/uL (0-0.2); Basophils % (auto) 0.2 % (0.0-2.0); Eosinophils # (auto) 0 10 ^3/uL (0-0.8); Eosinophils % (auto) 0.1 % (0.0-7.0); Hematocrit 45.3 % (41.0-53.0); Hemoglobin 15.8 g/dL (13.5-17.5); Lymphocytes # (auto) 3.2 10 ^3/uL (0.4-5.4); Lymphocytes % (auto) 26.5 % (10.0-50.0); Mean Corpuscular Hemoglobin 30.5 pg (28.0-32.0); Mean Corpuscular Hgb Conc. 34.8 g/dL (32.0-36.0); Mean Corpuscular Volume 87.7 fL (80.0-100.0); Monocytes % (auto) 8.7 % (0.0-12.0); Neutrophils # (auto) 7.7 10 ^3/uL (1.6-8.6); Neutrophils % (auto) 64.5 % (37.0-80.0); Nucleated Red Blood Cells % 0.1 %; Platelet Count (auto) 194 10^3/uL (140-450); Red Blood Cells 5.16 10^6/uL (4.5-5.90); Red Cell Distribution Width 13.3 % (11.8-14.3)
[2025-03-14 06:48] LABS: Chloride 105 mmol/L (98-107); Potassium 3.6 mmol/L (3.5-5.1); Sodium 140 mmol/L (136-145)
[2025-03-14 06:49] LABS: Anion Gap 12 (5-15); Calcium 9.5 mg/dL (8.7-10.4); Carbon Dioxide 23 mmol/L (20-31)
[2025-03-14 06:54] LABS: BUN/Creatinine Ratio 23.6 (10.0-20.0); Blood Urea Nitrogen 21 mg/dL (9-23); Glucose 102 mg/dL (74-106)
[2025-03-14 08:00] VITALS: PULSE 58; RESP 16; O2SAT 97
[2025-03-14 09:00] VITALS: BP 132/87; PULSE 65; RESP 16; TEMP 98; O2SAT 97
[2025-03-14 10:00] VITALS: O2SAT 97
[2025-03-14 13:00] VITALS: BP 133/82; PULSE 60; RESP 18; TEMP 98.1; O2SAT 98
--- NOTE | 2025-03-14 15:25 | DVHPNRES ---
Progress Note Date Seen: Mar 14, 2025 Resident Creating Document: FRANKIE GUEVARA RESIDENT Medical Necessity Reason Pt with a Central, PICC or Fol: No Subjective Review of Systems Mr. Sandoval is a 60 year old male with history of brain aneurysm status post clipping, subarachnoid hemorrhage status post craniotomy who presented to the ER with a chief complaint of left-sided facial weakness and drooping for a day associated with left-sided headache and ear pain. t mentioned mild headache on the left side associated with ear pain radiating to to the lower neck on the neck. He also mentioned difficulty hearing on the left side. He denies chest pain, shortness of breath, nausea/vomiting/diarrhea/abdominal pain/seizure at this time. Past medical /surgical history:brain aneurysm status post clipping, subarachnoid hemorrhage status post craniotomy, hyperlipidemia, hypertension Social history: Denies smoking, drinking, marijuana use Home medication: Benazepril, hydrochlorothiazide, atorvastatin, trazodone 03/12-Patient seen and examined in ER holding area. Has complete left-sided facial paralysis, lower motor neuron lesion. 03/14-patient seen and examined. MRI brain was ordered by neurologist, could not be completed as patient is intracranial clipping. Repeat CT scan ordered to rule out stroke Objective vital signs Vital Sign Date Time Temp Pulse Resp B/P (MAP) Pulse Ox O2 Delivery O2 Flow Rate FiO2 03/14/25 13:00 98.1 60 18 133/82 (99) 98 98.1 03/14/25 10:00 Room Air 0.0 03/14/25 10:00 21 Total Intake and Output 03/13/25 03/13/25 03/14/25 15:00 23:00 07:00 Intake Total 650 ml 400 ml Balance 650 ml 400 ml medications Current Medications Medications Dose Ordered Sig/Vikki Route Start Time Stop Time Status Last Admin Dose Admin Artificial Tears 1 drop Q2HP PRN EACHEYE 03/11/25 22:15 Acetaminophen 650 mg Q4HP PRN PO 03/12/25 01:30 03/13/25 08:33 650 MG Trazodone HCl 50 mg DAILY PO 03/13/25 10:00 03/14/25 08:21 50 MG Hydrochlorothiazide 12.5 mg DAILY PO 03/13/25 10:00 03/14/25 08:21 12.5 MG Ergocalciferol 50,000 unit Q7D PO 03/12/25 14:45 Atorvastatin Calcium 20 mg HS PO 03/12/25 22:00 03/13/25 21:24 20 MG Prednisone 60 mg DAILY PO 03/13/25 10:00 03/22/25 09:59 03/14/25 08:20 60 MG Lorazepam 1 mg ONCE PRN IV 03/12/25 23:15 Famotidine 40 mg DAILY PO 03/13/25 10:00 03/14/25 08:21 40 MG Examination Patient comfortably sitting in a chair, no acute distress. Visible facial asymmetry. General: Well-built, no pallor, mucosae are moist Cardiovascular: Regular S1 and S2. No murmurs, gallops or rubs. No JVD elevation. No pedal edema Respiratory: Normal B/L air entry on room air. Clear lung sounds on auscultation Abdomen: Soft, nontender, nondistended, normoactive bowel sounds, no rebound tenderness, no organomegaly, no masses Genitourinary: Deferred MSK/skin: Mobilizes 4 limbs. Skin is dry and warm Neurological: No motor, no sensitive deficits, speech is normal. Pupils are isocoric and reactive. ? Tongue weakness, Facial muscles asymmetrical, unable to make eyebrows/wrinkles, unable to smile, left eye not closing Fully . Angle of mouth drooping on right side. Facial sensation intact in V1/V2/V3 Patient can write her name, can draw clock. [id number] testing unremarkable laboratory and microbiology Laboratory Tests 03/14/25 05:28 Test 03/14/25 05:28 Range/Units Serum Glucose 102 74-106 mg/dL Labs and/or images reviewed: Labs reviewed by me, Image(s) reviewed by me Problem List/Assessment/Plan Problem List/Assessment/Plan Chiu's palsy - lower motor neuron lesion ? [place] lin syndrome Rule out acute stroke CT head shows No acute intracranial hemorrhage. Postop changes of the right craniotomy with subluxed encephalomalacia. CTA head and neck completed given history of subarachnoid hemorrhage and aneurysms, showed No evidence of hemodynamically significant intracranial stenosis, proximal occlusion or aneurysm. No evidence of hemodynamically significant cervical stenosis or dissection. Prednisone 60mg daily Neurology consult-recommended prednisolone 60 mg daily, discontinued acyclovir, recommended MRI brain which could not be completed. Repeat head CT ordered Discontinued Acyclovir 400 mg 5 times daily Artificial tears # History of SAH s/p craniotomy on the right side Monitor # History of Brain aneurysm s/p clipping Monitor # Hypertension Continue hydrochlorothiazide 12.5 mg daily # hyperlipidemia resume home Meds Vitamin-D deficiency Supplemented DVT prophylaxis: SCDs given history of SAH Soft mechanical diet, passed bedside swallow eval Plan discussed with patient in which all questions have been answered Goals of care discussed with the patient for more than 20 minutes, full code status Case discussed with Dr. Torres Plan discussed with: Patient My Orders My Orders Orders - FRANKIE GUEVARA Procedure Category Date Status Time Head Without Contrast CT 03/14/25 Logged 14:08 Dietary Evaluation Review Comments: 1) Encourage optimal PO intake 2) Advance to cardiac diet when medically feasible, pending ST approval 2) Refer to outpatient RD for weight management 3) Follow-up with neurology 4) Continue to monitor I&O, labs, and skin integrity Expected Outcomes/Goals: 1) appetite and labs to improve 2) f/u in 3-5 days Date of Service: Mar 14, 2025 Billing Provider: HELEN TORRES MD Common Visit Codes: [id number] INP/OBS CARE(HIGH) FRANKIE GUEVARA RESIDENT Mar 14, 2025 15:25 HELEN TORRES MD Mar 15, 2025 08:19
[2025-03-14 17:00] VITALS: BP 125/77; PULSE 64; RESP 18; TEMP 97.5; O2SAT 98
--- NOTE | 2025-03-14 17:38 | DVH ---
EXAM: CT HEAD WITHOUT CONTRAST INDICATION: Rule out stroke TECHNIQUE: CT of the head without intravenous contrast. Radiation Dose Information: CT Dose: CTDI volume is 51.03 mGy. Dose-length product is 818.2 mGy*cm The dose indicators for CT are the volume Computed Tomography (CT) Dose Index (CTDIvol) and the Dose Length Product (DLP), and are measured in units of mGy and mGy-cm, respectively. These indicators are not patient dose, but values generated from the CT scanner acquisition factors. The report includes radiation exposure data for exposures received during this examination. COMPARISON: CT HEAD WITHOUT CONTRAST on DOS: 03/11/25, CT HEAD WITHOUT CONTRAST on DOS: 12/15/23 FINDINGS: There is no evidence of acute intracranial hemorrhage, extra-axial collection, mass effect, midline s hift, herniation or hydrocephalus. Right-sided craniotomy with area of encephalomalacia most likely representing sequela from surgery . The ventricles, sulci and cisterns are age appropriate. The rouse-white differentiation is intact. Patchy periventricular and subcortical white matter hypoattenuation is nonspecific but may be related to small vessel ischemic disease. The visualized paranasal sinuses and mastoid air cells are clear. The surrounding soft tissues and osseous structures are unremarkable. IMPRESSION: 1. No acute intracranial hemorrhage. 2. Craniotomy in the right frontal temporal bone. 3. Area of encephalomalacia on the right likely sequela from craniotomy. HS:Y
[2025-03-14 21:00] VITALS: BP 124/80; PULSE 51; RESP 16; TEMP 98.1; O2SAT 99
[2025-03-15 01:00] VITALS: BP 121/68; PULSE 63; RESP 16; TEMP 97.9; O2SAT 98
[2025-03-15 05:00] VITALS: BP 144/89; PULSE 65; RESP 16; TEMP 97.8; O2SAT 99
[2025-03-15 09:00] VITALS: BP 142/91; PULSE 60; RESP 16; TEMP 97.4; O2SAT 100
[2025-03-15 10:00] VITALS: O2SAT 97
[2025-03-15 12:54] VITALS: BP 133/85; PULSE 79; RESP 16; TEMP 98.1; O2SAT 98
--- NOTE | 2025-03-15 14:07 | DVHDSRES ---
Discharge Summary Date of Admission Resident Creating Document: FRANKIE GUEVARA RESIDENT Mar 11, 2025 at 21:14 Date of Discharge: Mar 15, 2025 Labs/Diagnostic Data: Laboratory Results Test 03/14/25 05:28 03/12/25 21:42 03/12/25 09:10 03/11/25 20:40 White Blood Count 12.0 10^3/uL (4.4-10.8) Red Blood Count 5.16 10^6/uL (4.5-5.90) Hemoglobin 15.8 g/dL (13.5-17.5) Hematocrit 45.3 % (41.0-53.0) Mean Corpuscular Volume 87.7 fL (80.0-100.0) Mean Corpuscular Hemoglobin 30.5 pg (28.0-32.0) Mean Corpuscular Hemoglobin Concent 34.8 g/dL (32.0-36.0) Red Cell Distribution Width 13.3 % (11.8-14.3) Platelet Count 194 10^3/uL (140-450) Mean Platelet Volume 9.5 fL (6.9-10.8) Neutrophils (%) (Auto) 64.5 % (37.0-80.0) Lymphocytes (%) (Auto) 26.5 % (10.0-50.0) Monocytes (%) (Auto) 8.7 % (0.0-12.0) Eosinophils (%) (Auto) 0.1 % (0.0-7.0) Basophils (%) (Auto) 0.2 % (0.0-2.0) Neutrophils # (Auto) 7.7 10 ^3/uL (1.6-8.6) Lymphocytes # (Auto) 3.2 10 ^3/uL (0.4-5.4) Monocytes # (Auto) 1.0 10 ^3/uL (0-1.3) Eosinophils # (Auto) 0 10 ^3/uL (0-0.8) Basophils # (Auto) 0 10 ^3/uL (0-0.2) Nucleated Red Blood Cells 0.1 % Sodium Level 140 mmol/L (136-145) Potassium Level 3.6 mmol/L (3.5-5.1) Chloride Level 105 mmol/L (98-107) Carbon Dioxide Level 23 mmol/L (20-31) Anion Gap 12 (5-15) Blood Urea Nitrogen 21 mg/dL (9-23) Creatinine 0.89 mg/dL (0.700-1.30) Glomerular Filtration Rate Calc 97 mL/min (>90) BUN/Creatinine Ratio 23.6 (10.0-20.0) Serum Glucose 102 mg/dL (74-106) Calcium Level 9.5 mg/dL (8.7-10.4) Influenza Type A Antigen Negative (Negative) Influenza Type B Antigen Negative (Negative) SARS-CoV-2 Antigen (Rapid) Negative (NEGATIVE) Magnesium Level 2.1 mg/dL (1.6-2.6) Total Bilirubin 1.8 mg/dL (0.2-1.0) Direct Bilirubin 0.6 mg/dL (<0.3) Aspartate Amino Transferase (AST) 18 U/L (<34) Alanine Aminotransferase (ALT) 30 U/L (7-40) Alkaline Phosphatase 53 U/L (46-116) Total Protein 7.8 g/dL (5.7-8.2) Albumin 4.7 g/dL (3.2-4.8) Vitamin B12 Level 429 pg/mL (211-911) Vitamin D 25-Hydroxy 25.6 ng/mL (30.0-100) Thyroid Stimulating Hormone (TSH) 1.41 uIU/mL (0.55-4.78) Urine Color Yellow (Yellow) Urine Clarity Clear (Clear) Urine pH 5.5 (5.0-9.0) Urine Specific Offerman 1.024 (1.001-1.035) Urine Protein Negative (Negative) Urine Ketones Negative (Negative) Urine Blood Negative /uL (Negative) Urine Nitrite Negative (Negative) Urine Bilirubin Negative (Negative) Urine Urobilinogen Normal mg/dL (Negative) Urine Leukocyte Esterase Negative /uL (Negative) Urine RBC <1 /hpf (0 - 3) Urine Microscopic WBC 1 /HPF (0-3) Urine Squamous Epithelial Cells Few /hpf (<5) Urine Bacteria None seen /hpf (None Seen) Urine Mucus Few (None Seen) Urine Glucose Normal mg/dL (Normal) Urine Opiates Screen Neg (NEGATIVE) Urine Fentanyl Screen Neg (NEGATIVE) Urine Barbiturates Screen Neg (NEGATIVE) Urine Phencyclidine Screen Neg (NEGATIVE) Urine Amphetamines Screen Neg (NEGATIVE) Urine Benzodiazepines Screen Neg (NEGATIVE) Urine Cocaine Screen Neg (NEGATIVE) Urine Cannabinoids Screen Neg (NEGATIVE) Test 03/11/25 18:21 03/11/25 15:14 Troponin I High Sensitivity 5 ng/L (</=54) Prothrombin Time 11.0 sec (9.3-11.8) Prothrombin Time INR 1.04 (0.9-1.15) Activated Partial Thromboplast Time 28.3 SEC (24.5-34.5) Other Laboratory Tests 03/14/25 05:28 Brief Hx & Hospital Course: Mr. Sandoval is a 60 year old male with history of brain aneurysm status post clipping, subarachnoid hemorrhage status post craniotomy who presented to the ER with a chief complaint of left-sided facial weakness and drooping for a day associated with left-sided headache and ear pain. t mentioned mild headache on the left side associated with ear pain radiating to to the lower neck on the neck. He also mentioned difficulty hearing on the left side. He denies chest pain, shortness of breath, nausea/vomiting/diarrhea/abdominal pain/seizure at this time. Past medical /surgical history:brain aneurysm status post clipping, subarachnoid hemorrhage status post craniotomy, hyperlipidemia, hypertension Social history: Denies smoking, drinking, marijuana use Home medication: Benazepril, hydrochlorothiazide, atorvastatin, trazodone During hospitalization, CT head shows No acute intracranial hemorrhage. Postop changes of the right craniotomy with subluxed encephalomalacia. Consequently, CTA head and neck completed given history of subarachnoid hemorrhage and aneurysms, showed No evidence of hemodynamically significant intracranial stenosis, proximal occlusion or aneurysm. No evidence of hemodynamically significant cervical stenosis or dissection. Patient was started on acyclovir 400 mg and prednisone 60 mg daily, artificial tears was started, neurology was consulted recommended MRI brain which could not be completed given the history of brain aneurysm clipping. Given the findings of tongue weakness and loss of taste, repeat CT head was completed which was also unremarkable. Acute stroke was consequently ruled out. Discharge plan: Follow up with the neurologist as outpatient within 7 days Follow up with primary care physician within 7 days Follow up with discharge clinic appointment within 7 days Prednisone 60 mg daily for 7 days Valacyclovir 1000 mg 3 times daily for 7 days Resume home medications Patient agreed to discharge planning. All questions and concerns answered. Consults/Reason for consult Neurology consulted Operations or Procedures EXAM: CT HEAD WITHOUT CONTRAST INDICATION: Rule out stroke TECHNIQUE: CT of the head without intravenous contrast. Radiation Dose Information: CT Dose: CTDI volume is 51.03 mGy. Dose-length product is 818.2 mGy*cm The dose indicators for CT are the volume Computed Tomography (CT) Dose Index (CTDIvol) and the Dose Length Product (DLP), and are measured in units of mGy and mGy-cm, respectively. These indicators are not patient dose, but values generated from the CT scanner acquisition factors. The report includes radiation exposure data for exposures received during this examination. COMPARISON: CT HEAD WITHOUT CONTRAST on DOS: 03/11/25, CT HEAD WITHOUT CONTRAST on DOS: 12/15/23 FINDINGS: There is no evidence of acute intracranial hemorrhage, extra-axial collection, mass effect, midline shift, herniation or hydrocephalus. Right-sided craniotomy with area of encephalomalacia most likely representing sequela from surgery . The ventricles, sulci and cisterns are age appropriate. The rouse-white differentiation is intact. Patchy periventricular and subcortical white matter hypoattenuation is nonspecific but may be related to small vessel ischemic disease. The visualized paranasal sinuses and mastoid air cells are clear. The surrounding soft tissues and osseous structures are unremarkable. IMPRESSION: 1. No acute intracranial hemorrhage. 2. Craniotomy in the right frontal temporal bone. 3. Area of encephalomalacia on the right likely sequela from craniotomy. 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 Ruled out acute stroke Hypertension Hyperlipidemia Vitamin-D deficiency History of SAH s/p craniotomy on the right side History of Brain aneurysm s/p clipping Discharge Disposition: Home Discharge Instruct/Medications Diet: Cardiac 2g Na,low cholest Activity: Light activity Follow Up/Referral: Follow up with the neurologist as outpatient within 7 days Follow up with primary care physician within 7 days Follow up with discharge clinic appointment within 7 days Medications: Prednisone 60 mg daily for 7 days Valacyclovir 1000 mg 3 times daily for 7 days Resume home medications Discharge Statement: "Patient was advised to return to the ER or call 911 if any headaches, dizziness, shortness of breath, chest pain, abdominal pain, bleeding, fevers, or worsening of medical condition. Patient was counseled about treatment plan, medications, possible side effects, patientverbalized understanding. All questions were answered to the best of my ability. 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
[2025-03-15] MEDS ORDERED: PRED20TA2 PO (14:09)
[2025-03-15] MEDS ORDERED: VALA500T33 PO (14:09)
[2025-03-15 14:27] VITALS: BP 146/79
== END 2025-03-15 16:00 | disposition home or self-care (01) | DRG 48 ==
LOC: ER 15:01 → OVERFLOW 21:14 → EAST 03-12 15:44
PROVIDERS: ADMIT Student in an Organized Health Care Education/Training Program; ATTEND Student in an Organized Health Care Education/Training Program
PROC: 5A09357 Assistance with Respiratory Ventilation, Less than 24 Consecutive Hours, Continuous Positive Airway Pressure (ICD-10-PCS; principal; 2025-03-13)
DX: G51.0 Bell's palsy (principal); G93.89 Other specified disorders of brain; E55.9 Vitamin D deficiency, unspecified; E78.5 Hyperlipidemia, unspecified; I10 Essential (primary) hypertension; E66.9 Obesity, unspecified; Z20.822 Contact with and (suspected) exposure to COVID-19; Z68.34 Body mass index [BMI] 34.0-34.9, adult
CPT/HCPCS: 36415; 70450; 70496; 70498; 71045; 80048; 80076; 80307; 81001; 82306; 82607; 83735; 84443; 84484; 85025; 85610; 85730; 87426; 87804; 92610; 93005; 94660; 99291; G0378